=== PATIENT | female | born 1970 | race Caucasian/White ===

== ENCOUNTER → 2017-08-20 | Outpatient (CLI) | payer BC ==
--- NOTE | 2017-08-20 13:45 | US ---
EXAMINATION TYPE: US pelvic complete DATE OF EXAM: 08/20/2017 COMPARISON: NONE CLINICAL HISTORY: 47-year-old female R10.2 PELVIC PAIN. pt states pelvic pain, and abnormal heavy vag inal bleeding x 2 months TECHNIQUE: Transabdominal (TA). Pt did not want TV at this time due to currently on menses Date of LMP: 08/15/2017 FINDINGS: EXAM MEASUREMENTS: Uterus: 9.4 x 4.9 x 6.7 cm Endometrial Stripe: 0.9 cm Right Ovary: 2.7 x 1.4 x 2.2 cm Left Ovary: 2.6 x 1.9 x 2.2 cm 1. Uterus: Anteverted Heterogeneous with possible fibroid right posterior fundus= 2.2 x 1.7 x 1.9 cm that appears primarily intramural. 2. Endometrium: Uniform in appearance. 3. Right Ovary: wnl 4. Left Ovary: Probable 1.4 cm corpus luteum. 5. Bilateral Adnexa: wnl 6. Posterior cul-de-sac: wnl IMPRESSION: 1. Heterogeneous area along the right posterior uterine fundus, suspected focal fibroid measuring 2.2 cm. This appears primarily intramural. A small submucosal component is difficult to exclude. 2. 9 mm thick endometrial stripe.
== END | disposition home or self-care (01) ==
LOC: RADUSWWP 12:27
PROVIDERS: ATTEND Obstetrics & Gynecology
DX: R93.8 Abnormal findings on diagnostic imaging of other specified body structures (principal)
CPT/HCPCS: 76856

== ENCOUNTER 2017-09-16 07:12 | Day surgery (SDC) | payer BC ==
[2017-09-10 09:06] VITALS: BMI 29.8
--- NOTE | 2017-09-16 06:52 | P.HPOB ---
History of Present Illness H&P Date: 09/16/17 Chief Complaint: Menorrhagia with regular cycle This is a 47-year-old female 4 para 1 who presents for dilation and curettage with hysteroscopy and NovaSure endometrial ablation secondary to menorrhagia with regular cycle. Her menses are heavy and painful and somewhat irregular occasionally. Her pelvic ultrasound showed a uterus measuring 9.4 x 4.9 x 6.7 cm with an endometrial stripe of 9 mm. There was a possible right fundal fibroid measuring 2.2 cm and a left ovarian cyst measuring 1.4 cm. Her menses are occurring every 28-30 days and last normally 4-5 days however over the last 3 months they've been lasting 7-8 days and very heavy with clots and cramping. Obstetrical history: . History of 1 vaginal delivery and 1 miscarriage. Gynecologic history: Have a history of genital warts. Her partner has had a vasectomy. Social history: She is . She works at a post [employer]. Review of Systems Constitutional: Reports weight gain, Denies chills, Denies fever Eyes: denies blurred vision, denies pain Ears, nose, mouth and throat: Denies headache, Denies sore throat Cardiovascular: Denies chest pain, Denies shortness of breath Respiratory: Denies cough Gastrointestinal: Denies abdominal pain, Denies diarrhea, Denies nausea, Denies vomiting Genitourinary: Reports dysmenorrhea, Reports menorrhagia, Reports pelvic pain Menstruation: Reports menses 8 or > days, Reports period heavy Musculoskeletal: Reports low back pain Integumentary: Denies pruritus, Denies rash Neurological: Reports headaches Psychiatric: Denies anxiety, Denies depression Past Medical History Past Medical History: Hyperlipidemia Additional Past Medical History / Comment(s): migranes, seasonal allergies History of Any Multi-Drug Resistant Organisms: None Reported Additional Past Surgical History / Comment(s): ganglion cyst right wrist; D&C Past Anesthesia/Blood Transfusion Reactions: No Reported Reaction Past Psychological History: No Psychological Hx Reported Smoking Status: Never smoker Past Alcohol Use History: Occasional Past Drug Use History: None Reported - Past Family History Father Family Medical History: Cancer Additional Family Medical History / Comment(s): skin Brother(s) Family Medical History: Cancer Additional Family Medical History / Comment(s): kidney Medications and Allergies Home Medications Medication Instructions Recorded Confirmed Type Ibuprofen [Motrin] 400 mg PO Q6HR PRN 09/10/17 09/10/17 History Allergies Allergy/AdvReac Type Severity Reaction Status Date / Time measles, mumps, and rubella AdvReac Anaphylaxis Verified 09/10/17 09:12 vaccine [From M-M-R II] Exam Osteopathic Statement: *. No significant issues noted on an osteopathic structural exam other than those noted in the History and Physical/Consult. HEENT: Within normal limits Heart: Regular rate and rhythm Lungs: Clear to auscultation bilaterally Abdomen: Soft, nontender Pelvic exam: Uterus is slightly tender, anteverted, with no adnexal masses noted but some tenderness noted on the left side. Extremities: Negative Homans Assessment and Plan (1) Menorrhagia with regular cycle Status: Acute Code(s): N92.0 - EXCESSIVE AND FREQUENT MENSTRUATION WITH REGULAR CYCLE SNOMED Code(s): 227450765 Plan: Proceed with dilation and curettage with hysteroscopy and NovaSure endometrial ablation. I have discussed the risks, benefits, and alternative therapies for the above- mentioned procedure and for both sedation/anesthesia as well as necessary blood products administration, if indicated, as they pertain to this patient. The patient has indicated her understanding and acceptance of the risks and procedures discussed.
[~2017-09-16 07:12] MED LIST: HYDROmorphone 0.5 MG/0.5 ML SYRINGE IVP PRN; LACTATED RINGERS 1,000 ML IV SCH; ONDANSETRON 4 MG/2 ML VIAL IVP PRN; Pre Op ABX Message 1 EACH MISC MISCELLANE ONE; fentaNYL (PF) 50 MCG/ML 2 ML AMP IV PRN
[2017-09-16] MEDS ORDERED: ONDANSETRON 4 MG/2 ML VIAL IVP ONE (08:04)
[2017-09-16] MEDS ORDERED: DEXAMETHASONE SOD PHOSPHATE 10 MG/ML 1 ML VIAL IV ONE (08:04)
[2017-09-16] MEDS ORDERED: LIDOCAINE 1% INJ 10MG/ML (20 ML MDV) ONE (08:38)
[2017-09-16] MEDS ORDERED: MIDAZOLAM 2 MG/2 ML VIAL ONE (08:38)
[2017-09-16] MEDS ORDERED: fentaNYL (PF) 50 MCG/ML 2 ML AMP ONE (08:38)
[2017-09-16] MEDS ORDERED: HYDROmorphone (PF) 1 MG/ML ONE (08:38)
[2017-09-16] MEDS ORDERED: PROPOFOL 10 MG/ML 20 ML VIAL IV ONE (08:38)
[2017-09-16] MEDS ORDERED: KETOROLAC 30 MG/ML 1 ML VIAL ONE (08:38)
--- NOTE | 2017-09-16 09:07 | P.OP ---
Date of Procedure: 09/16/17 Preoperative Diagnosis: Menorrhagia with regular cycle Postoperative Diagnosis: Same Procedure(s) Performed: Dilation and curettage with hysteroscopy and NovaSure endometrial ablation Anesthesia: other (LMA general) Surgeon: Irena Taveras Estimated Blood Loss (ml): 3 Pathology: other (Endometrial curettings) Condition: stable Disposition: same day Indications for Procedure: This is a 47-year-old female 4 para 1 who presents for dilation and curettage with hysteroscopy and NovaSure endometrial ablation secondary to menorrhagia with regular cycle. Her menses are heavy and painful and somewhat irregular occasionally. Her pelvic ultrasound showed a uterus measuring 9.4 x 4.9 x 6.7 cm with an endometrial stripe of 9 mm. There was a possible right fundal fibroid measuring 2.2 cm and a left ovarian cyst measuring 1.4 cm. Her menses are occurring every 28-30 days and last normally 4-5 days however over the last 3 months they've been lasting 7-8 days and very heavy with clots and cramping. Operative Findings: Uterus is anteverted with no adnexal masses palpated. Cervix is sounded to 2 cm and uterus is sounded to 8 cm. Upon hysteroscopy, a fairly uniform endometrial appearance was noted with both tubal ostia visualized. A very scant amount of endometrial curettings was obtained. Description of Procedure: The patient is taken to the operating room. She is placed in the dorsal lithotomy position after general anesthesia was given. She is prepped and draped in the normal sterile fashion. Bladder is drained with a catheter and then removed. Pelvic exam is performed under anesthesia. Uterus is found to be anteverted with no adnexal masses. She is placed in slight Trendelenburg position. A right angle retractor is used to visualize the cervix. The anterior lip of the cervix is grasped with a single-tooth tenaculum. Cervix is sounded to 2 cm. Uterus is sounded to 8 cm. Cervix is gently dilated with Lynch dilators until a hysteroscope could be passed. Hysteroscopy is performed using normal saline. The above noted findings are noted. Next a polyp forceps is introduced. A minimal amount of tissue was obtained. Next medium-sized size sharp curette was placed. A minimal amount of endometrial curettings were obtained. Next NovaSure array was inserted into the endometrial cavity. Length was set at 6 cm and width was determined to be 3 cm. Next cavity assessment was completed and passed on the first try. Next NovaSure array was fired at 99 W for 52 seconds. Next the array was removed, inspected and then discarded. Next the hysteroscope was reinserted. Uniform charring was noted. Pictures were taken. Hysteroscope was removed. Single-tooth tenaculum was removed from the anterior lip of the cervix. Minimal bleeding was noted. All other instruments removed from the vagina. Sponge counts were correct. Patient is taken to recovery room in stable condition.
[2017-09-16 09:19] VITALS: TEMP 97
[2017-09-16] MEDS: fentaNYL (PF) 50 MCG/ML 2 ML AMP IVP ONE ×2 (09:27→09:37)
[2017-09-16 09:37] VITALS: RESP 16
[2017-09-16 10:45] VITALS: BP 113/66; PULSE 69
== END 2017-09-16 10:55 | disposition home or self-care (01) ==
LOC: OR 07:12
PROVIDERS: ATTEND Obstetrics & Gynecology
DX: N92.0 Excessive and frequent menstruation with regular cycle (principal); N83.202 Unspecified ovarian cyst, left side; E78.5 Hyperlipidemia, unspecified; G43.909 Migraine, unspecified, not intractable, without status migrainosus; Z88.7 Allergy status to serum and vaccine
CPT/HCPCS: 58563; 81025; 88305; J2250; J1100; J2405; J2001; J3010; J1885; J1170; J2704

== ENCOUNTER → 2017-09-23 | Outpatient (CLI) | payer BC ==
--- NOTE | 2017-09-25 12:10 | MM ---
Reason for exam: screening (asymptomatic). Last mammogram was performed 2 years and 5 months ago. History: Family history of breast cancer in paternal grandmother at age 60 and breast cancer in paternal aunt at age 60. Took hormonal contraceptives for 10 years beginning at age 31. Physical Findings: A clinical breast exam by your physician is recommended on an annual basis and results should be correlated with mammographic findings. MG Screening Mammo w CAD Bilateral CC and MLO view(s) were taken. Prior study comparison: April 27, 2015, mammogram. April 26, 2014, mammogram. There are scattered fibroglandular densities. No significant changes when compared with prior studies. ASSESSMENT: Benign, BI-RAD 2 RECOMMENDATION: Routine screening mammogram of both breasts in 1 year.
== END | disposition home or self-care (01) ==
LOC: RADMAMWWP 16:58
PROVIDERS: ATTEND Obstetrics & Gynecology
DX: Z12.31 Encounter for screening mammogram for malignant neoplasm of breast (principal)
CPT/HCPCS: 77067

== ENCOUNTER → 2018-10-30 | Outpatient (CLI) | payer BC | END | disposition home or self-care (01) | DX: Z53.9 Procedure and treatment not carried out, unspecified reason (principal) ==